=== PATIENT | female | born 1965 | race Caucasian/White ===

== ENCOUNTER 2019-04-10 09:39 | Inpatient (IN) ==
[2019-04-10 14:03] LABS: HEMATOCRIT 44.8 % (37.0-47.0); HEMOGLOBIN 14.1 g/dL (12.0-16.0); MCH 27.8 PG (27-31); MCHC 31.5 g/dL (33-37); MCV 88.2 FL (81-99); MPV 11.7 FL (7.4-10.4); RBC 5.08 XMIL (4.2-5.4); WBC 7.48 X1000 (4.8-10.8)
[2019-04-10 14:14] LABS: URINE SOURCE VOIDED
[2019-04-10 14:21] LABS: UR AMPHETAMINES QUAL NONE DETECTED (NONE DETECT); UR BARBITUATES QUAL NONE DETECTED (NONE DETECT); UR BENZODIAZEPIN QUAL PRESUMPTIVE POSITIVE (NONE DETECT); UR CANNABINOIDS QUAL NONE DETECTED (NONE DETECT); UR COCAINE QUAL NONE DETECTED (NONE DETECT); UR METHADONE QUAL NONE DETECTED (NONE DETECT); UR METHAMPHETAMINE QUAL NONE DETECTED (NONE DETECT); UR OPIATES QUAL NONE DETECTED (NONE DETECT); UR OXYCODONE QUAL NONE DETECTED (NONE DETECT); UR PCP QUAL NONE DETECTED (NONE DETECT); UR PROPOXYPHENE QUAL NONE DETECTED (NONE DETECT); UR TCA QUAL NONE DETECTED (NONE DETECT)
[2019-04-10 14:22] LABS: INR 1.05; PROTIME 14.2 Seconds (11.0-16.0)
[2019-04-10 14:24] LABS: BILIRUBIN URINE NEGATIVE (NEGATIVE); BLOOD URINE NEGATIVE (NEGATIVE); CLARITY SL. CLOUDY (CLEAR); COLOR YELLOW; GLUCOSE URINE NEGATIVE (NEGATIVE); KETONE URINE NEGATIVE (NEGATIVE); LEUKOCYTES URINE NEGATIVE (NEGATIVE); NITRITE URINE NEGATIVE (NEGATIVE); PROTEIN URINE TRACE mg/dL (NEGATIVE); SP GRAVITY URINE 1.025; UROBILINOGEN URINE NORMAL
[2019-04-10 14:25] LABS: AGAP 16; ALBUMIN 3.8 g/dL (3.5-5.0); ALKALINE PHOSPHATASE 98 U/L (32-104); BUN 12 mg/dL (8-22); CALCIUM 10.2 mg/dL (8.8-10.2); CHLORIDE 106 mmol/L (98-107); COSMO 289; CREATININE 0.8 mg/dL (0.5-0.9); ESTIMATED GFR > 60; GLUCOSE 111 mg/dL (70-104); GOT 25 U/L (10-30); GPT 24 U/L (10-36); POTASSIUM 3.6 mmol/L (3.5-5.1); SODIUM 145 mmol/L (136-145); TCO2 23 mmol/L (25-35); TOTAL PROTEIN 7.5 g/dL (6.3-8.3)
[2019-04-10 14:25] LABS: URINE BACTERIA 3+ /HFP; URINE CAST NONE SEEN /LPF; URINE CRYSTAL NONE SEEN /HPF; URINE EPITHELIAL CELLS >10 /HPF (<10); URINE RBC <10 /HPF (<10); URINE WBC 20-40 /HPF (<10); URINE YEAST NONE SEEN /HPF
[2019-04-10 14:36] LABS: AMYLASE 26 U/L (20-200); LIPASE 24 U/L (13-60)
[2019-04-11 12:32] LABS: UR AMPHETAMINES QUAL PRESUMPTIVE POSITIVE (NONE DETECT); UR BARBITUATES QUAL NONE DETECTED (NONE DETECT); UR BENZODIAZEPIN QUAL NONE DETECTED (NONE DETECT); UR COCAINE QUAL NONE DETECTED (NONE DETECT); UR METHADONE QUAL NONE DETECTED (NONE DETECT); UR METHAMPHETAMINE QUAL PRESUMPTIVE POSITIVE (NONE DETECT); UR OPIATES QUAL NONE DETECTED (NONE DETECT); UR OXYCODONE QUAL NONE DETECTED (NONE DETECT); UR PCP QUAL NONE DETECTED (NONE DETECT); UR PROPOXYPHENE QUAL NONE DETECTED (NONE DETECT)
[2019-04-11 12:33] LABS: UR CANNABINOIDS QUAL NONE DETECTED (NONE DETECT); UR TCA QUAL PRESUMPTIVE POSITIVE (NONE DETECT)
[2019-04-13 09:45] LABS: HEMATOCRIT 38.2 % (37.0-47.0); HEMOGLOBIN 11.6 g/dL (12.0-16.0); MCH 27.6 PG (27-31); MCHC 30.4 g/dL (33-37); MCV 90.7 FL (81-99); MPV 11.1 FL (7.4-10.4); RBC 4.21 XMIL (4.2-5.4); RDW 13.2 % (11.5-14.5); WBC 8.82 X1000 (4.8-10.8)
[2019-04-13 09:57] LABS: AGAP 10; ALBUMIN 3.5 g/dL (3.5-5.0); ALKALINE PHOSPHATASE 81 U/L (32-104); BUN 13 mg/dL (8-22); CALCIUM 8.9 mg/dL (8.8-10.2); CHLORIDE 102 mmol/L (98-107); COSMO 272; CREATININE 0.5 mg/dL (0.5-0.9); ESTIMATED GFR > 60; GLUCOSE 96 mg/dL (70-104); GOT 56 U/L (10-30); GPT 53 U/L (10-36); POTASSIUM 4.1 mmol/L (3.5-5.1); SODIUM 136 mmol/L (136-145); TCO2 24 mmol/L (25-35); TOTAL PROTEIN 7.2 g/dL (6.3-8.3)
[2019-04-13 22:00] LABS: URINE SOURCE CLEAN CATCH
[2019-04-13 22:08] LABS: BILIRUBIN URINE NEGATIVE (NEGATIVE); BLOOD URINE NEGATIVE (NEGATIVE); CLARITY CLEAR (CLEAR); COLOR YELLOW; GLUCOSE URINE NEGATIVE (NEGATIVE); KETONE URINE NEGATIVE (NEGATIVE); LEUKOCYTES URINE NEGATIVE (NEGATIVE); NITRITE URINE NEGATIVE (NEGATIVE); PH URINE 6.5; PROTEIN URINE NEGATIVE (NEGATIVE); UROBILINOGEN URINE NORMAL
[2019-04-17 11:47] VITALS: BP 128/67
== END 2019-04-17 16:42 | disposition home or self-care (01) ==
LOC: P.MEDSURG 13:07
PROVIDERS: ADMIT Family Medicine; ATTEND Family Medicine

== ENCOUNTER 2019-07-03 10:06 | Inpatient (IN) ==
[2019-07-03] MEDS ORDERED: PHENOBARBITAL IV PRN (12:47)
[2019-07-03] MEDS ORDERED: IMODIUM PO PRN ×2 (12:47)
[2019-07-03] MEDS ORDERED: D5W 1,000 ML IV PRN (12:47)
[2019-07-03] MEDS ORDERED: DULCOLAX PR PRN (12:47)
[2019-07-03] MEDS ORDERED: NICOTINE GUM BUCCAL PRN (12:47)
[2019-07-03] MEDS ORDERED: TUBERSOL ID ONE (12:47)
[2019-07-03] MEDS ORDERED: SENOKOT PO PRN (12:47)
[2019-07-03] MEDS ORDERED: ZOFRAN IM PRN (12:47)
[2019-07-03] MEDS ORDERED: DESYREL PO PRN (12:47)
[2019-07-03] MEDS ORDERED: NICODERM PATCH TD PRN (12:47)
[2019-07-03] MEDS ORDERED: ZOFRAN IV PRN (12:47)
[2019-07-03] MEDS ORDERED: SINEMET 25/100 PO PRN (13:21)
[2019-07-03] MEDS ORDERED: ATARAX PO PRN (13:21)
[2019-07-03] MEDS ORDERED: ROBAXIN PO PRN (13:21)
[2019-07-03] MEDS ORDERED: BENTYL PO PRN (13:21)
[2019-07-03] MEDS ORDERED: LIBRIUM PO PRN (13:21)
[2019-07-03] MEDS: TYLENOL PO PRN (13:24)
[2019-07-03 13:47] LABS: URINE SOURCE VOIDED
[2019-07-03 13:58] LABS: BILIRUBIN URINE NEGATIVE (NEGATIVE); BLOOD URINE NEGATIVE (NEGATIVE); COLOR YELLOW; GLUCOSE URINE NEGATIVE (NEGATIVE); KETONE URINE NEGATIVE (NEGATIVE); LEUKOCYTES URINE SMALL (NEGATIVE); NITRITE URINE NEGATIVE (NEGATIVE); PROTEIN URINE NEGATIVE (NEGATIVE); SP GRAVITY URINE 1.021; TURBIDITY URINE CLEAR (CLEAR); UROBILINOGEN URINE NORMAL (NORMAL)
[2019-07-03 13:59] LABS: UR EPITHELIAL CELLS <10 /HPF (<10); URINE BACTERIA 3+ /HPF; URINE RBC <10 /HPF (<10)
[2019-07-03] MEDS ORDERED: SUBOXONE 2 MG/0.5 MG FILM SL SCH ×2 (14:00→17:30)
[2019-07-03 14:21] LABS: HEMATOCRIT 41.1 % (37.0-47.0); HEMOGLOBIN 12.8 g/dL (12.0-16.0); MCH 27.7 PG (27-31); MCHC 31.1 g/dL (33-37); RBC 4.62 XMIL (4.2-5.4); WBC 7.61 X1000 (4.8-10.8)
[2019-07-03 14:30] LABS: UR AMPHETAMINES QUAL PRESUMPTIVE POSITIVE (NONE DETECT); UR BARBITUATES QUAL NONE DETECTED (NONE DETECT); UR BENZODIAZEPIN QUAL NONE DETECTED (NONE DETECT); UR CANNABINOIDS QUAL NONE DETECTED (NONE DETECT); UR COCAINE QUAL NONE DETECTED (NONE DETECT); UR METHADONE QUAL NONE DETECTED (NONE DETECT); UR METHAMPHETAMINE QUAL PRESUMPTIVE POSITIVE (NONE DETECT); UR OPIATES QUAL PRESUMPTIVE POSITIVE (NONE DETECT); UR OXYCODONE QUAL NONE DETECTED (NONE DETECT); UR PCP QUAL NONE DETECTED (NONE DETECT); UR PROPOXYPHENE QUAL NONE DETECTED (NONE DETECT); UR TCA QUAL NONE DETECTED (NONE DETECT)
[2019-07-03 14:46] LABS: AGAP 13; ALKALINE PHOSPHATASE 109 U/L (32-104); AMYLASE 32 U/L (20-200); BUN 13 mg/dL (8-22); CALCIUM 8.9 mg/dL (8.8-10.2); CHLORIDE 106 mmol/L (98-107); COSMO 287; CREATININE 0.7 mg/dL (0.5-0.9); ESTIMATED GFR > 60; GLUCOSE 97 mg/dL (70-104); GOT 21 U/L (10-30); GPT 20 U/L (10-36); LIPASE 37 U/L (13-60); POTASSIUM 3.9 mmol/L (3.5-5.1); SODIUM 144 mmol/L (136-145); TCO2 26 mmol/L (25-35); TOTAL PROTEIN 7.7 g/dL (6.3-8.3)
[2019-07-03 15:36] LABS: INR 0.91; PROTIME 12.7 Seconds (11.0-16.0)
[2019-07-03] MEDS: ZOFRAN ODT PO PRN (18:18)
[2019-07-03] MEDS: SUBOXONE 2 MG/0.5 MG FILM SL SCH (18:18)
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
[2019-07-03] MEDS: MOTRIN PO PRN (23:36)
[2019-07-04] MEDS: TYLENOL PO PRN ×2 (05:01→15:32)
[2019-07-04] MEDS: SUBOXONE 2 MG/0.5 MG FILM SL SCH (05:01)
[2019-07-04] MEDS: PROTONIX PO SCH (07:03)
[2019-07-04] MEDS: FOLIC ACID PO SCH (08:52)
[2019-07-04] MEDS: VITAMIN B-1 PO SCH (08:52)
[2019-07-04] MEDS: THERA M PLUS PO SCH (08:52)
[2019-07-04] MEDS: MOTRIN PO PRN (12:20)
[2019-07-04] MEDS: MAALOX PLUS LIQUID PO PRN (12:33)
[2019-07-04] MEDS: SUBOXONE 8 MG/2 MG FILM SL SCH (21:02)
[2019-07-04] MEDS: ZOFRAN ODT PO PRN (21:02)
[2019-07-04] MEDS: SEROQUEL PO PRN (21:03)
--- NOTE | 2019-07-05 00:57 | PROGRESS NOTE ---
DATE: 07/04/2019 SUBJECTIVE: The patient notes that she is feeling okay. Still nauseated and still having some muscle cramps and sweating, but overall improving. OBJECTIVE: Vital signs reviewed. Temperature 97.7 degrees, pulse 81, respiratory rate 18, BP 148/90.General: The patient is awake, alert. She is in no current distress. HEENT: Normocephalic. Neck supple. Cardiovascular: Regular rate. Chest clear. Abdomen soft. Extremities: No edema. Neurologic: No focal changes. ASSESSMENT: 1. Nausea and vomiting. 2. Abdominal pain. 3. Myalgias. 4. Paresthesias. 5. Paroxysmal sweating. 6. Opiate abuse, withdrawal and stabilization. PLAN: We are going to continue the patient in the hospital. At this point we are going to increase from 4 to 8/2. Continue counseling and will follow. cc: Demar Wood MD
[2019-07-05] MEDS: TYLENOL PO PRN (04:10)
[2019-07-05] MEDS: PROTONIX PO SCH (06:05)
[2019-07-05] MEDS: VITAMIN B-1 PO SCH (09:23)
[2019-07-05] MEDS: THERA M PLUS PO SCH (09:23)
[2019-07-05] MEDS: FOLIC ACID PO SCH (09:23)
[2019-07-05] MEDS: SUBOXONE 8 MG/2 MG FILM SL SCH ×2 (09:23→20:56)
[2019-07-05] MEDS: MOTRIN PO PRN (09:33)
[2019-07-05] MEDS ORDERED: APRESOLINE IV PRN (13:19)
[2019-07-05] MEDS: MAALOX PLUS LIQUID PO PRN (17:36)
[2019-07-05] MEDS: SEROQUEL PO PRN (20:56)
[2019-07-06] MEDS: ZOFRAN ODT PO PRN (00:32)
--- NOTE | 2019-07-06 00:38 | PROGRESS NOTE ---
DATE: 07/05/2019 SUBJECTIVE: Patient notes that she is feeling a lot better. Denies any fevers or chills. PHYSICAL EXAMINATION: Vital signs reviewed. She is awake, alert, and oriented. Temperature 98 degrees, pulse 89, BP 131/65 to 170/100. General: The patient is an obese female who is pleasant talk with. HEENT: Normocephalic. Neck: Supple. Cardiovascular: Regular rate. Chest: Clear. Abdomen: Soft. Extremities: Moves all extremities. Neurologic: No changes. ASSESSMENT: 1. Nausea and vomiting. 2. Abdominal pain. 3. Myalgias. 4. Paresthesias. 5. Paroxysmal sweating. 6. Opiate abuse, withdrawal and stabilization. 7. Tobacco abuse. 8. Obstructive sleep apnea. PLAN: We will continue patient in the hospital. Continue to follow. Continue Suboxone. Place her on blood pressure medications. Hopefully if her blood pressure is better, she can be discharged home tomorrow. cc: Demar Wood MD
[2019-07-06] MEDS: PROTONIX PO SCH (06:10)
[2019-07-06] MEDS: TYLENOL PO PRN (06:11)
[2019-07-06 09:32] VITALS: BP 101/66
[2019-07-06] MEDS: SUBOXONE 8 MG/2 MG FILM SL SCH (10:20)
[2019-07-06] MEDS: VITAMIN B-1 PO SCH (10:20)
[2019-07-06] MEDS: FOLIC ACID PO SCH (10:20)
[2019-07-06] MEDS: THERA M PLUS PO SCH ×2 (10:21→10:22)
--- NOTE | 2019-07-08 07:45 | DISCHARGE SUMMARY ---
ADMISSION DATE: 07/03/2019 DISCHARGE DATE: 07/06/2019 DISCHARGE DIAGNOSES: 1. Nausea and vomiting. 2. Abdominal pain. 3. Myalgias. 4. Paresthesias. 5. Paroxysmal sweating. 6. Opiate abuse, withdrawal, and stabilization. 7. Sleep apnea. CONSULTATIONS: None. PROCEDURES: None. BRIEF HOSPITAL COURSE: The patient is a 53-year-old female who presented to [facility] secondary to nausea, vomiting, abdominal pain, myalgias, and paresthesias. She had been re-abusing opiates. We placed her on Suboxone. Thankfully, on discharge, she is awake, alert. She is in no distress. Overall, she notes that she is feeling better. DISPOSITION: The patient will be discharged home. Discussed with her that she needs to avoid all persons, places, and situations in which she has been using and abusing in the past. She needs outpatient life counseling as well as drug counseling. TIME SPENT: Greater than 30 minutes were spent in total care. cc: Demar Wood MD
== END 2019-07-06 15:45 | disposition home or self-care (01) | DRG 897 ==
LOC: P.DIRADM 10:06 → P.MEDSURG 10:24
PROVIDERS: ADMIT Family Medicine; ATTEND Family Medicine